=== PATIENT | male | born 2000 ===

== ENCOUNTER 2023-08-14 20:11 | Emergency (ER) | payer OTHER ==
[~2023-08-14] VITALS: Ht 177.8 cm; Wt 70.0 kg
[~2023-08-14 20:11] MED LIST: NORCO 325 MG-51 TAB PO
[2023-08-14 20:37] VITALS: BP 110/71; PULSE 103; TEMP 98.2
== END 2023-08-14 21:25 | disposition home or self-care (01) ==
LOC: COL.ER 20:11
DX: T78.40XA Allergy, unspecified, initial encounter (principal)

== ENCOUNTER 2024-03-06 11:51 | Emergency (ER) | payer OTHER ==
[~2024-03-06] VITALS: Ht 177 cm; Wt 71.0 kg
[2024-03-06 12:00] VITALS: BP 125/74; TEMP 98.1
[2024-03-06 14:22] VITALS: PULSE 78
== END 2024-03-06 14:22 | disposition home or self-care (01) ==
LOC: COL.ER 11:51
DX: S40.011A Contusion of right shoulder, initial encounter (principal); W18.30XA Fall on same level, unspecified, initial encounter; W22.01XA Walked into wall, initial encounter; Y93.73 Activity, racquet and hand sports